=== PATIENT | male | born 1940 | race Caucasian/White ===

== ENCOUNTER 2016-07-05 08:14 | Day surgery (SDC) | payer MEDICARE ==
[~2016-07-05] VITALS: Ht 182.9 cm; Wt 102.0 kg
[~2016-07-05 08:14] MED LIST: AMLO10TA3 PO; ASPI-973 PO; ATOR20TA PO; FLUT16SP NS; LISI40TA PO; METF500T4 PO; OMEP40CA36 PO; Sodium Chloride LOK Flush 10 mL Syringe IV PRN; TAMS0.4C29 PO; TRAZ-115 PO; fentaNYL-PF 50 mCg/mL 2 mL Inj IVPUSH PRN
[2016-07-05 08:36] VITALS: BP 140/84; PULSE 74; RESP 16; O2SAT 97
[2016-07-05] MEDS: 0.9% Sodium Chloride 1,000 ML IV SCH ×3 (08:44→09:30)
[2016-07-05] MEDS ORDERED: HYOS0.1216 PO (08:46)
[2016-07-05 09:36] VITALS: BP 118/80; PULSE 65; RESP 16; O2SAT 93
[2016-07-05 09:44] VITALS: BP 112/75; PULSE 69; RESP 16; O2SAT 96
[2016-07-05 09:55] VITALS: BP 116/70; PULSE 64; RESP 16; O2SAT 94
--- NOTE | 2016-07-05 12:30 | ENDO ---
[address] [address] ENDOSCOPY PROCEDURE PATIENT: ELSY RODRÍGUEZ : 1940 MR#: [id number] ADMIT: 07/05/2016 JOB ID: [id number] DATE: 07/05/2016 PROCEDURE: Colonoscopy. INDICATION: The patient with a history of low-grade dysplastic tubular adenoma. The patient's ASA classification is 2. Mallampati score is 2. MEDICATIONS: 1. Versed 4 mg. 2. Fentanyl 100 mcg. INSTRUMENT USED: PCF H 180 AL. PREPARATION QUALITY: Was fair. PROCEDURE DETAILS: After informed consent was obtained, the patient was brought into the GI suite, where he was placed on oxygen via nasal cannula and monitored with continuous pulse oximeter, telemetry and blood pressure monitoring. A time-out was performed. Then, he was placed in a left lateral decubitus position and medications were administered for sedation. A digital rectal examination with palpation of the prostate was performed, which was unremarkable. The colonoscope was then inserted into the rectum and advanced under direct visualization to the cecum, which was identified by the presence of the ileocecal valve and appendiceal orifice. Once the cecum was reached, the colonoscope was withdrawn back into the rectum as the mucosa and lumen were examined. In the rectum, retroflexion was performed. Following retroflexion, remaining air in the rectum was suctioned, and the procedure was completed. FINDINGS: 1. Scattered diverticula were seen throughout the sigmoid colon. 2. Otherwise normal examination from rectum to cecum. IMPRESSION: Sigmoid diverticulosis. RECOMMENDATIONS: 1. Repeat colonoscopy in five years. 2. Fiber rich diet. 3. Follow up in GI clinic as needed. COMPLICATIONS: None. ESTIMATED BLOOD LOSS: 0.
== END 2016-07-05 23:59 | disposition home or self-care (01) ==
LOC: END 08:14
PROVIDERS: ATTEND Internal Medicine Gastroenterology
DX: Z12.11 Encounter for screening for malignant neoplasm of colon (principal); Z86.010 Personal history of colon polyps; K57.30 Diverticulosis of large intestine without perforation or abscess without bleeding; N40.0 Benign prostatic hyperplasia without lower urinary tract symptoms; E11.9 Type 2 diabetes mellitus without complications; E78.5 Hyperlipidemia, unspecified; G47.30 Sleep apnea, unspecified; I10 Essential (primary) hypertension; Z79.82 Long term (current) use of aspirin; Z79.84 Long term (current) use of oral hypoglycemic drugs; M16.12 Unilateral primary osteoarthritis, left hip
CPT/HCPCS: 99153; G0105; G0500; J2250; J7030